=== PATIENT | female | born 1970 | race African-American/Black ===

== ENCOUNTER 2016-07-12 07:21 | Emergency (ER) | payer MEDICAID, OTHER ==
[~2016-07-12] VITALS: Ht 162.6 cm; Wt 107.0 kg
[~2016-07-12 07:21] MED LIST: ASCO500 PO; CYCL5TAB PO; FERR-72 PO; FOLI1 PO; LID5O TP; METF500T4 PO; MORP15TA9 PO; OMEP20 PO; PERCT PO; VITAD1000 PO
[2016-07-12] MEDS ORDERED: METH2.5T6 PO (07:31)
[2016-07-12] MEDS ORDERED: ONDANSETRON HCL 4 MG/2 ML VIAL IVP ONE (09:15)
[2016-07-12] MEDS ORDERED: SODIUM CHLORIDE 0.9% 1,000 ML IV ONE (09:15)
[2016-07-12 13:27] LABS: GLUCOSE,POINT OF CARE 102 MG/DL (70-110)
[2016-07-12 14:08] VITALS: BP 111/74
== END 2016-07-12 14:44 | disposition home or self-care (01) ==
LOC: EMS 07:22
DX: R51 Headache (principal); E11.9 Type 2 diabetes mellitus without complications; E78.00 Pure hypercholesterolemia, unspecified; K21.9 Gastro-esophageal reflux disease without esophagitis; G47.30 Sleep apnea, unspecified; R53.1 Weakness; Z88.0 Allergy status to penicillin; Z88.6 Allergy status to analgesic agent
CPT/HCPCS: 70450; 82962; 96361; 96374; 99284; J2405; J7030

== ENCOUNTER 2016-10-07 15:50 | Emergency (ER) | payer OTHER ==
[~2016-10-07] VITALS: Ht 162.6 cm; Wt 106.8 kg
[~2016-10-07 15:50] MED LIST changes: +METH2.5T6 PO
[2016-10-07 16:07] LABS: GLUCOSE,POINT OF CARE 125 MG/DL (70-110)
[2016-10-07 18:06] VITALS: BP 128/75
== END 2016-10-07 18:51 | disposition home or self-care (01) ==
LOC: EMS 15:54
DX: J06.9 Acute upper respiratory infection, unspecified (principal); A08.4 Viral intestinal infection, unspecified; E11.9 Type 2 diabetes mellitus without complications; E78.00 Pure hypercholesterolemia, unspecified; K21.9 Gastro-esophageal reflux disease without esophagitis; Z88.0 Allergy status to penicillin; Z88.6 Allergy status to analgesic agent
CPT/HCPCS: 82962; 99283

== ENCOUNTER 2016-11-16 10:34 | Emergency (ER) | payer OTHER ==
[2016-11-16] MEDS ORDERED: DICYCLOMINE HCL 20 MG TABLET PO ONE (11:30)
[2016-11-16] MEDS ORDERED: ONDANSETRON HCL 4 MG/2 ML VIAL IVP ONE (11:30)
[2016-11-16] MEDS ORDERED: SODIUM CHLORIDE 0.9% 1,000 ML IV ONE (11:30)
[2016-11-16 11:46] LABS: HEMOGLOBIN 13.7 g/dL (12.0-16.0); MEAN CORPUSCULAR HEMOGLOBIN 28.8 pg (26.0-34.0); MEAN CORPUSCULAR HGB CONC 32.6 G/dL (31.0-37.0); MEAN CORPUSCULAR VOLUME 88 fL (80-100); PLATELET COUNT (AUTO) 543 K/uL (150-450); RED BLOOD CELL COUNT(AUTO) 4.76 MIL/uL (4.00-5.20); RED CELL DISTRIBUTION WIDTH 16.3 % (11.5-14.5); WHITE BLOOD COUNT (AUTO) 17.3 K/uL (4.5-11.0)
[2016-11-16 12:05] LABS: ANION GAP 15 mmol/L (8-16); CALCIUM, TOTAL 10.1 mg/dL (8.8-10.5); CARBON DIOXIDE 25 mmol/L (22-29); CHLORIDE 104 mmol/L (98-107); CREATININE 1.11 mg/dL (0.60-1.30); GLOMERULAR FILTR. RATE CALC > 60 mL/min (>60); POTASSIUM 3.9 mmol/L (3.5-5.1); SODIUM SERUM 144 mmol/L (136-145); UREA NITROGEN, BLOOD 11 mg/dL (7-18)
[2016-11-16 12:06] LABS: BAND NEUTROPHILS % (MANUAL) 8 % (1-5); LYMPHOCYTES % (MANUAL) 18 % (22-44); RBC MORPHOLOGY COMMENT NORMAL RBC MORPH; TOTAL CELLS COUNTED 100
[2016-11-16 12:10] LABS: ALANINE AMINOTRANSFERASE 12 U/L (12-78); ALBUMIN 4.2 g/dL (3.4-5.0); ASPARTATE AMINOTRANSFERASE 8 U/L (15-37); BILIRUBIN,TOTAL 0.5 mg/dL (0.1-1.0); TOTAL PROTEIN, SERUM 10.1 g/dL (6.4-8.2)
[2016-11-16] MEDS ORDERED: ONDANSETRON HCL 4 MG/2 ML VIAL ONE (12:22)
[2016-11-16] MEDS ORDERED: MORPHINE SULFATE 4 MG/ML SYRINGE IVP ONE (12:45)
[2016-11-16] MEDS ORDERED: MORPHINE SULFATE 2 MG/ML SYRINGE ONE (12:53)
[2016-11-16] MEDS ORDERED: IOVERSOL 350 MG/ML 150 ML VIAL ONE (13:02)
[2016-11-16] MEDS ORDERED: SODIUM CHLORIDE 0.9% 100 ML ONE (13:02)
[2016-11-16] MEDS ORDERED: MORPHINE SULFATE 2 MG/ML SYRINGE IVP ONE (13:15)
[2016-11-16 15:33] VITALS: BP 115/65
== END 2016-11-16 16:00 | disposition home or self-care (01) ==
LOC: EMS 10:34
DX: R11.2 Nausea with vomiting, unspecified (principal); R19.7 Diarrhea, unspecified; D72.829 Elevated white blood cell count, unspecified; N39.0 Urinary tract infection, site not specified; K21.9 Gastro-esophageal reflux disease without esophagitis; E11.9 Type 2 diabetes mellitus without complications; E78.00 Pure hypercholesterolemia, unspecified; Z88.0 Allergy status to penicillin; Z88.6 Allergy status to analgesic agent
CPT/HCPCS: 36415; 74022; 74177; 80053; 82962; 83690; 84703; 85025; 96361; 96374; 96375; 99285; J2270; J2405; J7050; Q9967

== ENCOUNTER 2017-05-07 11:03 | Emergency (ER) | payer OTHER ==
[~2017-05-07] VITALS: Ht 162.6 cm; Wt 104.5 kg
[2017-05-07 11:18] LABS: GLUCOSE,POINT OF CARE 145 MG/DL (70-110)
[2017-05-07 12:01] LABS: INFLUENZA TYPE A NEGATIVE FOR TYPE A (NEGATIVE); INFLUENZA TYPE B NEGATIVE FOR TYPE B (NEGATIVE); RAPID GROUP A STREP NEGATIVE (NEGATIVE)
[2017-05-07] MEDS ORDERED: HYDROCODONE/ACETAMINOPHEN 5-325 MG TABLET PO ONE (12:30)
[2017-05-07] MEDS ORDERED: MORPHINE SULFATE 10 MG/ML SYRINGE IM ONE (12:30)
[2017-05-07] MEDS ORDERED: ONDANSETRON HCL 4 MG/2 ML VIAL IM ONE (12:30)
[2017-05-07 13:43] VITALS: BP 130/95
== END 2017-05-07 14:26 | disposition home or self-care (01) ==
LOC: EMS 11:08
DX: J02.9 Acute pharyngitis, unspecified (principal); R22.1 Localized swelling, mass and lump, neck; E11.9 Type 2 diabetes mellitus without complications; E78.00 Pure hypercholesterolemia, unspecified; K21.9 Gastro-esophageal reflux disease without esophagitis; Z88.0 Allergy status to penicillin; Z88.6 Allergy status to analgesic agent
CPT/HCPCS: 82962; 87430; 87804; 96372; 99284; J2270; J2405

== ENCOUNTER 2017-05-15 13:43 | Emergency (ER) | payer OTHER ==
[~2017-05-15] VITALS: Ht 162.6 cm; Wt 104.5 kg
[2017-05-15 14:03] LABS: GLUCOSE,POINT OF CARE 191 MG/DL (70-110)
[2017-05-15] MEDS ORDERED: ONDANSETRON HCL 4 MG/2 ML VIAL IVP ONE (14:30)
[2017-05-15] MEDS ORDERED: SODIUM CHLORIDE 0.9% 1,000 ML IV ONE (14:30)
[2017-05-15] MEDS ORDERED: MethylPREDNISolone SOD SUCC 125 MG/2 ML VIAL IVP ONE (14:30)
[2017-05-15] MEDS ORDERED: MORPHINE SULFATE 4 MG/ML SYRINGE IVP ONE (14:30)
[2017-05-15] MEDS ORDERED: IOVERSOL 350 MG/ML 150 ML VIAL ONE (14:39)
[2017-05-15 14:48] LABS: BASOPHILS % (AUTO) 0.9 % (0.0-2.0); EOSINOPHILS % (AUTO) 0.9 % (1.0-6.0); HEMATOCRIT 36.6 % (36-46); HEMOGLOBIN 12.3 g/dL (12.0-16.0); LYMPHOCYTES # (AUTO) 3.1 K/uL (1.0-4.8); LYMPHOCYTES % (AUTO) 23.7 % (22.0-44.0); MEAN CORPUSCULAR HGB CONC 33.5 G/dL (31.0-37.0); MEAN CORPUSCULAR VOLUME 87 fL (80-100); MONOCYTES # (AUTO) 0.4 K/uL (0.1-1.0); MONOCYTES % (AUTO) 3.4 % (2.0-9.0); NEUTROPHILS # (AUTO) 9.4 K/uL (1.8-7.7); NEUTROPHILS % (AUTO) 71.1 % (40.0-70.0); PLATELET COUNT (AUTO) 553 K/uL (150-450); RED BLOOD CELL COUNT(AUTO) 4.23 MIL/uL (4.00-5.20); RED CELL DISTRIBUTION WIDTH 15.4 % (11.5-14.5)
[2017-05-15 14:54] LABS: ANION GAP 7 mmol/L (8-16); CALCIUM, TOTAL 9.5 mg/dL (8.8-10.5); CARBON DIOXIDE 35 mmol/L (22-29); CHLORIDE 100 mmol/L (98-107); CREATININE 0.67 mg/dL (0.60-1.30); GLOMERULAR FILTR. RATE CALC > 60 mL/min (>60); GLUCOSE,RANDOM 190 mg/dL (70-110); SODIUM SERUM 142 mmol/L (136-145); UREA NITROGEN, BLOOD 7 mg/dL (7-18)
[2017-05-15 14:57] LABS: MONOTEST NEGATIVE (NEGATIVE)
[2017-05-15 15:00] LABS: ALANINE AMINOTRANSFERASE 23 U/L (12-78); ALBUMIN 3.9 g/dL (3.4-5.0); ALKALINE PHOSPHATASE 142 U/L (46-116); ASPARTATE AMINOTRANSFERASE 16 U/L (15-37); BILIRUBIN,TOTAL 0.4 mg/dL (0.1-1.0); TOTAL PROTEIN, SERUM 8.8 g/dL (6.4-8.2)
[2017-05-15 19:41] VITALS: BP 119/82
== END 2017-05-15 19:41 | disposition short-term general hospital (02) ==
LOC: EMS 13:45
DX: C11.9 Malignant neoplasm of nasopharynx, unspecified (principal); R22.1 Localized swelling, mass and lump, neck; J02.9 Acute pharyngitis, unspecified; E11.9 Type 2 diabetes mellitus without complications; K21.9 Gastro-esophageal reflux disease without esophagitis; E78.00 Pure hypercholesterolemia, unspecified; Z88.6 Allergy status to analgesic agent; Z88.0 Allergy status to penicillin
CPT/HCPCS: 36415; 70491; 80053; 81025; 82962; 85025; 86063; 86308; 96361; 96374; 96375; 99291; J2270; J2405; J2930; J7030; Q9967

== ENCOUNTER 2018-01-27 12:26 | Emergency (ER) | payer MEDICAID, OTHER ==
[~2018-01-27] VITALS: Ht 162.6 cm; Wt 101.4 kg
[~2018-01-27 12:26] MED LIST changes: +METF-960 PO; -METF500T4 PO
[2018-01-27 13:24] LABS: GLUCOSE,POINT OF CARE 145 MG/DL (70-110)
[2018-01-27] MEDS ORDERED: ONDA4 PO (13:31)
[2018-01-27] MEDS ORDERED: LORA0.5T2 PO (13:31)
[2018-01-27] MEDS ORDERED: POLY90PO MC (13:31)
[2018-01-27] MEDS ORDERED: OXYC5 PO (13:31)
[2018-01-27] MEDS ORDERED: PERCT10 PO (13:31)
[2018-01-27] MEDS ORDERED: MAG360OR93 PO (13:31)
[2018-01-27] MEDS ORDERED: LORA10TA7 PO (13:31)
[2018-01-27] MEDS ORDERED: SULF20OR7 PO (13:31)
[2018-01-27] MEDS ORDERED: SODIUM CHLORIDE 0.9% 1,000 ML IV ONE (13:45)
[2018-01-27 14:08] LABS: BASOPHILS % (AUTO) 1.9 % (0.0-2.0); HEMATOCRIT 30.3 % (36-46); HEMOGLOBIN 10.4 g/dL (12.0-16.0); LYMPHOCYTES # (AUTO) 4.1 K/uL (1.0-4.8); LYMPHOCYTES % (AUTO) 49.7 % (22.0-44.0); MEAN CORPUSCULAR HEMOGLOBIN 33.8 pg (26.0-34.0); MEAN CORPUSCULAR HGB CONC 34.5 G/dL (31.0-37.0); MEAN CORPUSCULAR VOLUME 98 fL (80-100); MONOCYTES # (AUTO) 0.7 K/uL (0.1-1.0); MONOCYTES % (AUTO) 8.2 % (2.0-9.0); NEUTROPHILS # (AUTO) 3.3 K/uL (1.8-7.7); NEUTROPHILS % (AUTO) 39.2 % (40.0-70.0); PLATELET COUNT (AUTO) 243 K/uL (150-450); RED BLOOD CELL COUNT(AUTO) 3.09 MIL/uL (4.00-5.20); RED CELL DISTRIBUTION WIDTH 15.6 % (11.5-14.5)
[2018-01-27 14:17] LABS: ANION GAP 10 mmol/L (8-16); CALCIUM, TOTAL 8.2 mg/dL (8.8-10.5); CARBON DIOXIDE 26 mmol/L (22-29); CHLORIDE 107 mmol/L (98-107); GLOMERULAR FILTR. RATE CALC > 60 mL/min (>60); GLUCOSE,RANDOM 119 mg/dL (70-110); SODIUM SERUM 143 mmol/L (136-145); UREA NITROGEN, BLOOD 4 mg/dL (7-18)
[2018-01-27 14:23] LABS: ALANINE AMINOTRANSFERASE 22 U/L (12-78); ALBUMIN 3.2 g/dL (3.4-5.0); ALKALINE PHOSPHATASE 84 U/L (46-116); ASPARTATE AMINOTRANSFERASE 18 U/L (15-37); BILIRUBIN,TOTAL 0.3 mg/dL (0.1-1.0); TOTAL PROTEIN, SERUM 6.2 g/dL (6.4-8.2)
[2018-01-27] MEDS ORDERED: HEPARIN SODIUM,PORCINE 1,000 UNITS/ML VIAL ONE (14:54)
[2018-01-27 15:12] VITALS: BP 162/77
== END 2018-01-27 15:23 | disposition home or self-care (01) ==
LOC: EMS 12:33
DX: G89.29 Other chronic pain (principal); R53.1 Weakness; E11.9 Type 2 diabetes mellitus without complications; K21.9 Gastro-esophageal reflux disease without esophagitis; M06.9 Rheumatoid arthritis, unspecified; E78.00 Pure hypercholesterolemia, unspecified; Z90.710 Acquired absence of both cervix and uterus; Z90.89 Acquired absence of other organs; Z98.890 Other specified postprocedural states; Z79.891 Long term (current) use of opiate analgesic; Z79.84 Long term (current) use of oral hypoglycemic drugs; Z79.899 Other long term (current) drug therapy; Z88.6 Allergy status to analgesic agent; Z88.0 Allergy status to penicillin; Z88.8 Allergy status to other drugs, medicaments and biological substances; Z85.79 Personal history of other malignant neoplasms of lymphoid, hematopoietic and related tissues
CPT/HCPCS: 36415; 80053; 82962; 85025; 99284; J1644; J7030

== ENCOUNTER 2018-11-01 06:32 | Emergency (ER) | payer MEDICAID ==
[~2018-11-01] VITALS: Ht 162.6 cm; Wt 106.8 kg
[~2018-11-01 06:32] MED LIST changes: -LID5O TP; +LORA0.5T2 PO; +LORA10TA7 PO; +MAG360OR93 PO; +ONDA4 PO; +OXYC5 PO; +PERCT10 PO; +POLY90PO MC; +SULF20OR7 PO
[2018-11-01] MEDS ORDERED: ACYC200C PO (06:47)
[2018-11-01 06:55] LABS: GLUCOSE,POINT OF CARE 213 MG/DL (70-110)
[2018-11-01] MEDS ORDERED: MORPHINE SULFATE 4 MG/ML SYRINGE IVP ONE (08:15)
[2018-11-01 08:54] LABS: BASOPHILS % (AUTO) 2.2 % (0.0-2.0); EOSINOPHILS % (AUTO) 1.1 % (1.0-6.0); HEMATOCRIT 33.8 % (36-46); HEMOGLOBIN 11.2 g/dL (12.0-16.0); LYMPHOCYTES # (AUTO) 3.9 K/uL (1.0-4.8); LYMPHOCYTES % (AUTO) 27.5 % (22.0-44.0); MEAN CORPUSCULAR HEMOGLOBIN 30.9 pg (26.0-34.0); MEAN CORPUSCULAR VOLUME 94 fL (80-100); MONOCYTES # (AUTO) 0.8 K/uL (0.1-1.0); NEUTROPHILS # (AUTO) 8.9 K/uL (1.8-7.7); NEUTROPHILS % (AUTO) 63.2 % (40.0-70.0); PLATELET COUNT (AUTO) 413 K/uL (150-450); RED BLOOD CELL COUNT(AUTO) 3.61 MIL/uL (4.00-5.20); RED CELL DISTRIBUTION WIDTH 14.4 % (11.5-14.5)
[2018-11-01 09:18] VITALS: BP 117/67
== END 2018-11-01 09:50 | disposition home or self-care (01) ==
LOC: EMS 06:33
DX: L02.31 Cutaneous abscess of buttock (principal); K21.9 Gastro-esophageal reflux disease without esophagitis; E78.00 Pure hypercholesterolemia, unspecified; E11.9 Type 2 diabetes mellitus without complications; Z88.0 Allergy status to penicillin; Z88.6 Allergy status to analgesic agent; Z88.8 Allergy status to other drugs, medicaments and biological substances; Z79.84 Long term (current) use of oral hypoglycemic drugs; Z79.899 Other long term (current) drug therapy
CPT/HCPCS: 36415; 82962; 85025; 96374; 99284; J2270

== ENCOUNTER 2019-01-08 14:04 | Emergency (ER) | payer MEDICAID, OTHER ==
[~2019-01-08] VITALS: Ht 162.6 cm; Wt 111.4 kg
[~2019-01-08 14:04] MED LIST changes: +ACYC200C PO; -ASCO500 PO; -FERR-72 PO; -FOLI1 PO; +LORA-999 PO; -LORA0.5T2 PO; -LORA10TA7 PO; -METH2.5T6 PO; -MORP15TA9 PO; -PERCT10 PO; -POLY90PO MC; -SULF20OR7 PO; -VITAD1000 PO
[2019-01-08 15:10] LABS: APPEARANCE,URINE CLOUDY (CLEAR); BILIRUBIN,URINE NEGATIVE (NEGATIVE); GLUCOSE, URINE (UA) 250 mg/dL (NEGATIVE); KETONES,URINE NEGATIVE (NEGATIVE); LEUKOCYTE ESTERASE ,URINE NEGATIVE (NEGATIVE); NITRATE,URINE NEGATIVE (NEGATIVE); OCCULT BLOOD,URINE NEGATIVE (NEGATIVE); PROTEIN,URINE NEGATIVE (NEGATIVE); UROBILINOGEN,URINE 0.2 mg/dL (<=1.0)
[2019-01-08 15:22] LABS: BACTERIA,URINE Few /HPF (None Seen); RBC,URINE None Seen /HPF (0-2); SQUAMOUS EPITHELIAL CELL,UR Few /LPF (None Seen); WBC,URINE 0-2 /HPF (0-5)
[2019-01-08 15:25] LABS: BASOPHILS % (AUTO) 2.3 % (0.0-2.0); EOSINOPHILS % (AUTO) 0.3 % (1.0-6.0); HEMATOCRIT 32.8 % (36-46); HEMOGLOBIN 10.9 g/dL (12.0-16.0); LYMPHOCYTES # (AUTO) 3.5 K/uL (1.0-4.8); LYMPHOCYTES % (AUTO) 35.5 % (22.0-44.0); MEAN CORPUSCULAR HEMOGLOBIN 30.5 pg (26.0-34.0); MEAN CORPUSCULAR HGB CONC 33.2 G/dL (31.0-37.0); MEAN CORPUSCULAR VOLUME 92 fL (80-100); MONOCYTES # (AUTO) 0.4 K/uL (0.1-1.0); NEUTROPHILS # (AUTO) 5.7 K/uL (1.8-7.7); NEUTROPHILS % (AUTO) 57.9 % (40.0-70.0); PLATELET COUNT (AUTO) 420 K/uL (150-450); RED BLOOD CELL COUNT(AUTO) 3.58 MIL/uL (4.00-5.20); RED CELL DISTRIBUTION WIDTH 13.9 % (11.5-14.5)
[2019-01-08 15:34] LABS: ANION GAP 9 mmol/L (8-16); CALCIUM, TOTAL 8.8 mg/dL (8.8-10.5); CARBON DIOXIDE 30 mmol/L (22-29); CHLORIDE 101 mmol/L (98-107); CREATININE 0.79 mg/dL (0.60-1.30); GLOMERULAR FILTR. RATE CALC > 60 mL/min (>60); GLUCOSE,RANDOM 240 mg/dL (70-110); POTASSIUM 3.6 mmol/L (3.5-5.1); SODIUM SERUM 140 mmol/L (136-145); UREA NITROGEN, BLOOD 6 mg/dL (7-18)
[2019-01-08 15:47] LABS: ALANINE AMINOTRANSFERASE 14 U/L (12-78); ALBUMIN 3.6 g/dL (3.4-5.0); ALKALINE PHOSPHATASE 156 U/L (46-116); ASPARTATE AMINOTRANSFERASE 12 U/L (15-37); BILIRUBIN,TOTAL 0.3 mg/dL (0.1-1.0); HCG,QUANTITATIVE 2 mIU/mL (0-6); LIPASE 44 U/L (73-393); TOTAL PROTEIN, SERUM 7.1 g/dL (6.4-8.2)
[2019-01-08] MEDS ORDERED: HEPARIN SODIUM,PORCINE 1,000 UNITS/ML VIAL ONE (17:46)
[2019-01-08] MEDS ORDERED: ONDANSETRON HCL 4 MG/2 ML VIAL IVP ONE (18:00)
[2019-01-08] MEDS ORDERED: MORPHINE SULFATE 4 MG/ML SYRINGE IVP ONE (18:00)
[2019-01-08 18:54] LABS: INFLUENZA TYPE A NEGATIVE FOR TYPE A (NEGATIVE); INFLUENZA TYPE B NEGATIVE FOR TYPE B (NEGATIVE)
[2019-01-08 19:45] VITALS: BP 116/82
== END 2019-01-08 20:13 | disposition home or self-care (01) ==
LOC: EMS 14:05
DX: R10.30 Lower abdominal pain, unspecified (principal); G89.29 Other chronic pain; M54.5 Low back pain; R11.2 Nausea with vomiting, unspecified; R19.7 Diarrhea, unspecified; E11.9 Type 2 diabetes mellitus without complications; E78.00 Pure hypercholesterolemia, unspecified; G47.30 Sleep apnea, unspecified; K21.9 Gastro-esophageal reflux disease without esophagitis; M19.90 Unspecified osteoarthritis, unspecified site; Z90.710 Acquired absence of both cervix and uterus; Z98.890 Other specified postprocedural states; Z85.72 Personal history of non-Hodgkin lymphomas; Z88.0 Allergy status to penicillin; Z88.6 Allergy status to analgesic agent; Z88.8 Allergy status to other drugs, medicaments and biological substances
CPT/HCPCS: 36415; 71045; 80053; 81001; 83690; 84702; 85025; 87804; 96374; 96375; 99285; J1644; J2270; J2405

== ENCOUNTER 2019-04-15 10:54 | Inpatient (IN) | payer OTHER ==
[~2019-04-15] VITALS: Ht 162.6 cm; Wt 100.0 kg
[~2019-04-15 10:54] MED LIST changes: -MAG360OR93 PO; +ONDA-104 PO; -ONDA4 PO
[2019-04-15] MEDS ORDERED: ONDANSETRON HCL 4 MG/2 ML VIAL IVP ONE (12:00)
[2019-04-15] MEDS ORDERED: BENZONATATE 100 MG CAPSULE PO ONE (12:00)
[2019-04-15] MEDS ORDERED: IPRATROPIUM BROMIDE 0.5 MG/2.5 ML NEB SOLUTION NEB ONE (12:00)
[2019-04-15] MEDS ORDERED: MethylPREDNISolone SOD SUCC 125 MG/2 ML VIAL IVP ONE (12:00)
[2019-04-15] MEDS ORDERED: ALBUTEROL SULFATE 2.5 MG/0.5 ML NEB SOLUTION NEB ONE (12:00)
[2019-04-15] MEDS ORDERED: SODIUM CHLORIDE 0.9% 1,000 ML IV ONE ×3 (13:00→14:15)
[2019-04-15 13:11] LABS: ANION GAP 9 mmol/L (8-16); CALCIUM, TOTAL 8.8 mg/dL (8.8-10.5); CARBON DIOXIDE 29 mmol/L (22-29); CHLORIDE 101 mmol/L (98-107); CREATININE 0.72 mg/dL (0.60-1.30); GLOMERULAR FILTR. RATE CALC > 60 mL/min (>60); GLUCOSE,RANDOM 329 mg/dL (70-110); POTASSIUM 3.9 mmol/L (3.5-5.1); SODIUM SERUM 139 mmol/L (136-145); UREA NITROGEN, BLOOD 3 mg/dL (7-18)
[2019-04-15 13:25] LABS: ALANINE AMINOTRANSFERASE 17 U/L (12-78); ALBUMIN 3.7 g/dL (3.4-5.0); ALKALINE PHOSPHATASE 156 U/L (46-116); ASPARTATE AMINOTRANSFERASE 18 U/L (15-37); BASOPHILS % (AUTO) 1.6 % (0.0-2.0); BILIRUBIN,TOTAL 0.4 mg/dL (0.1-1.0); EOSINOPHILS % (AUTO) 0.6 % (1.0-6.0); HCG,QUANTITATIVE < 1 mIU/mL (0-6); HEMATOCRIT 33.1 % (36-46); HEMOGLOBIN 10.8 g/dL (12.0-16.0); LYMPHOCYTES # (AUTO) 4.7 K/uL (1.0-4.8); MEAN CORPUSCULAR HEMOGLOBIN 29.7 pg (26.0-34.0); MEAN CORPUSCULAR HGB CONC 32.7 G/dL (31.0-37.0); MEAN CORPUSCULAR VOLUME 91 fL (80-100); MONOCYTES # (AUTO) 0.7 K/uL (0.1-1.0); MONOCYTES % (AUTO) 3.8 % (2.0-9.0); NEUTROPHILS # (AUTO) 12.3 K/uL (1.8-7.7); PLATELET COUNT (AUTO) 415 K/uL (150-450); RED BLOOD CELL COUNT(AUTO) 3.65 MIL/uL (4.00-5.20); RED CELL DISTRIBUTION WIDTH 13.8 % (11.5-14.5); TOTAL PROTEIN, SERUM 6.9 g/dL (6.4-8.2)
[2019-04-15] MEDS ORDERED: MORPHINE SULFATE 4 MG/ML SYRINGE IVP ONE (13:30)
[2019-04-15 13:32] LABS: B-TYPE NATRIURETIC PEPTIDE 179 pg/mL (0-100)
[2019-04-15 13:32] LABS: INFLUENZA TYPE A NEGATIVE FOR TYPE A (NEGATIVE); INFLUENZA TYPE B NEGATIVE FOR TYPE B (NEGATIVE)
[2019-04-15 13:38] LABS: LACTIC ACID 3.2 mmol/L (0.4-2.0)
[2019-04-15 13:53] LABS: APPEARANCE,URINE CLEAR (CLEAR); BILIRUBIN,URINE NEGATIVE (NEGATIVE); GLUCOSE, URINE (UA) >=1000 mg/dL (NEGATIVE); KETONES,URINE NEGATIVE (NEGATIVE); LEUKOCYTE ESTERASE ,URINE NEGATIVE (NEGATIVE); NITRATE,URINE NEGATIVE (NEGATIVE); OCCULT BLOOD,URINE NEGATIVE (NEGATIVE); PROTEIN,URINE NEGATIVE (NEGATIVE); UROBILINOGEN,URINE 0.2 mg/dL (<=1.0)
[2019-04-15] MEDS ORDERED: AZITHROMYCIN 500 MG/NS 250 ML IV ONE (14:00)
[2019-04-15] MEDS ORDERED: CefTRIAXone 1 GM/DEXTROSE 50 ML IV ONE (14:00)
[2019-04-15 14:05] LABS: BACTERIA,URINE None Seen /HPF (None Seen); RBC,URINE None Seen /HPF (0-2); SQUAMOUS EPITHELIAL CELL,UR Rare /LPF (None Seen); WBC,URINE None Seen /HPF (0-5)
[2019-04-15] MEDS ORDERED: DEXTROSE 50%-WATER 25 GM/50 ML SYRINGE IVP PRN (14:15)
[2019-04-15] MEDS ORDERED: ACETAMINOPHEN 325 MG TABLET PO PRN (14:15)
[2019-04-15] MEDS: HEPARIN SODIUM,PORCINE 5,000 UNITS/ML VIAL SQ SCH ×2 (16:59→23:39)
[2019-04-15] MEDS: OxyCODONE HCL/ACETAMINOPHEN 5-325 MG TABLET PO PRN ×2 (17:26→23:40)
[2019-04-15] MEDS: MetFORMIN HCL 500 MG TABLET PO SCH (17:27)
[2019-04-15 17:41] LABS: GLUCOSE,POINT OF CARE 370 MG/DL (70-110)
[2019-04-15 19:40] VITALS: BP 128/72
[2019-04-15] MEDS: DOCUSATE SODIUM 100 MG CAPSULE PO SCH (21:00)
[2019-04-15] MEDS: OxyCODONE HCL 10 MG IR TABLET PO SCH (21:01)
[2019-04-15] MEDS: ONDANSETRON HCL 4 MG/2 ML VIAL IVP PRN (21:01)
[2019-04-15 21:07] VITALS: BP 128/72
[2019-04-15] MEDS: INSULIN LISPRO 100 UNITS/ML SQ PRN (21:32)
[2019-04-15 23:50] VITALS: BP 124/70
[2019-04-16 04:30] VITALS: BP 119/71
[2019-04-16 05:08] LABS: GLUCOMETER DEV NAME(LOC) 6N.2; GLUCOSE,POINT OF CARE 393 MG/DL (70-110)
[2019-04-16] MEDS: ONDANSETRON HCL 4 MG/2 ML VIAL IVP PRN (05:40)
[2019-04-16] MEDS: OxyCODONE HCL/ACETAMINOPHEN 5-325 MG TABLET PO PRN ×4 (05:41→23:42)
[2019-04-16] MEDS: INSULIN LISPRO 100 UNITS/ML SQ PRN ×3 (06:11→21:21)
[2019-04-16 07:52] VITALS: BP 106/80
[2019-04-16 07:54] LABS: GLUCOMETER DEV NAME(LOC) 6N.1; GLUCOSE,POINT OF CARE 346 MG/DL (70-110)
[2019-04-16] MEDS: HEPARIN SODIUM,PORCINE 5,000 UNITS/ML VIAL SQ SCH ×3 (08:00→23:41)
[2019-04-16 08:26] LABS: BASOPHILS % (AUTO) 1.5 % (0.0-2.0); EOSINOPHILS % (AUTO) 0 % (1.0-6.0); HEMATOCRIT 29.7 % (36-46); LYMPHOCYTES # (AUTO) 2.2 K/uL (1.0-4.8); LYMPHOCYTES % (AUTO) 14.2 % (22.0-44.0); MEAN CORPUSCULAR HEMOGLOBIN 30.5 pg (26.0-34.0); MEAN CORPUSCULAR HGB CONC 33.6 G/dL (31.0-37.0); MEAN CORPUSCULAR VOLUME 91 fL (80-100); MONOCYTES # (AUTO) 0.7 K/uL (0.1-1.0); MONOCYTES % (AUTO) 4.5 % (2.0-9.0); NEUTROPHILS # (AUTO) 12.6 K/uL (1.8-7.7); NEUTROPHILS % (AUTO) 79.8 % (40.0-70.0); PLATELET COUNT (AUTO) 398 K/uL (150-450); RED BLOOD CELL COUNT(AUTO) 3.27 MIL/uL (4.00-5.20)
[2019-04-16 08:27] LABS: ANION GAP 8 mmol/L (8-16); CALCIUM, TOTAL 8.8 mg/dL (8.8-10.5); CARBON DIOXIDE 28 mmol/L (22-29); CHLORIDE 101 mmol/L (98-107); CREATININE 0.74 mg/dL (0.60-1.30); GLOMERULAR FILTR. RATE CALC > 60 mL/min (>60); GLUCOSE,RANDOM 328 mg/dL (70-110); POTASSIUM 3.8 mmol/L (3.5-5.1); SODIUM SERUM 137 mmol/L (136-145); UREA NITROGEN, BLOOD 8 mg/dL (7-18)
[2019-04-16] MEDS ORDERED: GlipiZIDE 5 MG TABLET PO ONE (09:00)
[2019-04-16] MEDS: FAMOTIDINE 20 MG TABLET PO SCH (09:46)
[2019-04-16] MEDS: MetFORMIN HCL 500 MG TABLET PO SCH ×2 (09:46→17:39)
[2019-04-16] MEDS: DOCUSATE SODIUM 100 MG CAPSULE PO SCH ×2 (09:46→21:13)
[2019-04-16] MEDS: OxyCODONE HCL 10 MG IR TABLET PO SCH ×2 (09:47→21:13)
[2019-04-16 11:26] VITALS: BP 129/87
[2019-04-16 15:03] VITALS: BP 122/78
[2019-04-16] MEDS: CefTRIAXone 1 GM/DEXTROSE 50 ML IV SCH (15:43)
[2019-04-16 16:34] LABS: GLUCOMETER DEV NAME(LOC) 6N.2; GLUCOSE,POINT OF CARE 317 MG/DL (70-110)
[2019-04-16] MEDS: AZITHROMYCIN 500 MG/NS 250 ML IV SCH (16:45)
[2019-04-16] MEDS ORDERED: BENZONATATE 100 MG CAPSULE PO PRN (17:30)
[2019-04-16] MEDS: GlipiZIDE 5 MG TABLET PO SCH (17:40)
[2019-04-16 19:45] VITALS: BP 120/67
[2019-04-16 21:39] LABS: GLUCOMETER DEV NAME(LOC) 6N.2; GLUCOSE,POINT OF CARE 274 MG/DL (70-110)
[2019-04-16 23:40] VITALS: BP 123/84
[2019-04-17 03:45] VITALS: BP 108/66
[2019-04-17] MEDS: GlipiZIDE 5 MG TABLET PO SCH (06:20)
[2019-04-17] MEDS: OxyCODONE HCL/ACETAMINOPHEN 5-325 MG TABLET PO PRN ×2 (06:20→11:57)
[2019-04-17] MEDS: INSULIN LISPRO 100 UNITS/ML SQ PRN ×2 (06:23→12:27)
[2019-04-17 07:01] LABS: GLUCOMETER DEV NAME(LOC) 6N.2; GLUCOSE,POINT OF CARE 223 MG/DL (70-110)
[2019-04-17 07:28] VITALS: BP 123/76
[2019-04-17] MEDS: HEPARIN SODIUM,PORCINE 5,000 UNITS/ML VIAL SQ SCH ×2 (08:00→16:00)
[2019-04-17] MEDS: DOCUSATE SODIUM 100 MG CAPSULE PO SCH (08:42)
[2019-04-17] MEDS: MetFORMIN HCL 500 MG TABLET PO SCH (08:42)
[2019-04-17] MEDS: FAMOTIDINE 20 MG TABLET PO SCH (08:42)
[2019-04-17] MEDS: OxyCODONE HCL 10 MG IR TABLET PO SCH (08:43)
[2019-04-17 11:11] VITALS: BP 128/71
[2019-04-17 13:22] LABS: GLUCOMETER DEV NAME(LOC) 6N.2; GLUCOSE,POINT OF CARE 209 MG/DL (70-110)
[2019-04-17] MEDS: CefTRIAXone 1 GM/DEXTROSE 50 ML IV SCH (14:02)
[2019-04-17] MEDS: AZITHROMYCIN 500 MG/NS 250 ML IV SCH (15:11)
[2019-04-17 15:23] VITALS: BP 135/82
== END 2019-04-17 19:00 | disposition home or self-care (01) | DRG 139 ==
LOC: EMS 10:54 → 6N 18:06
PROVIDERS: ADMIT Internal Medicine; ATTEND Internal Medicine
DX: J18.9 Pneumonia, unspecified organism (principal); C85.10 Unspecified B-cell lymphoma, unspecified site; R65.10 Systemic inflammatory response syndrome (SIRS) of non-infectious origin without acute organ dysfunction; E11.65 Type 2 diabetes mellitus with hyperglycemia; E66.01 Morbid (severe) obesity due to excess calories; G47.30 Sleep apnea, unspecified; M54.9 Dorsalgia, unspecified; K21.9 Gastro-esophageal reflux disease without esophagitis; M19.90 Unspecified osteoarthritis, unspecified site; G89.29 Other chronic pain; Z91.19 Patient's noncompliance with other medical treatment and regimen; E78.00 Pure hypercholesterolemia, unspecified; Z88.0 Allergy status to penicillin; Z88.8 Allergy status to other drugs, medicaments and biological substances; Z90.710 Acquired absence of both cervix and uterus; Z90.81 Acquired absence of spleen; Z83.3 Family history of diabetes mellitus; Z68.37 Body mass index [BMI] 37.0-37.9, adult
CPT/HCPCS: 83605; 87040; 87804; 93005; 94640; J0456; J0696; J1644; J2270; J2405; J2930; J7030

== ENCOUNTER → 2024-06-12 | Day surgery (SDC) | payer OTHER ==
[~2024-06-12] VITALS: Ht 162.6 cm; Wt 101.4 kg
[~2024-06-12] MED LIST changes: -ACYC200C PO; +ACYC200C24 PO; +ACYC400T20 PO; +BUDE10.27 IH; -CYCL5TAB PO; +FAMO40TA7 PO; +LIDOCAINE/PF 2% 5 ML VIAL ONE; -LORA-999 PO; +METF-1211 PO; +METF-446 PO; -METF-960 PO; -OMEP20 PO; +OMEP40CA21 PO; +OXYC-618 PO; -OXYC5 PO; -PERCT PO; +PROPOFOL 1% 20 ML VIAL IVP ONE; +SODIUM CHLORIDE 0.9% 1,000 ML ONE
[2024-06-12] MEDS: SODIUM CHLORIDE 0.9% 1,000 ML IV ONE (10:02)
== END | disposition still patient (30) ==
LOC: SURGERY 08:27
PROVIDERS: ATTEND Internal Medicine
DX: Z12.11 Encounter for screening for malignant neoplasm of colon (principal); K31.7 Polyp of stomach and duodenum; K29.70 Gastritis, unspecified, without bleeding; M06.9 Rheumatoid arthritis, unspecified; G47.30 Sleep apnea, unspecified; E11.9 Type 2 diabetes mellitus without complications; J44.9 Chronic obstructive pulmonary disease, unspecified; K21.9 Gastro-esophageal reflux disease without esophagitis; Z98.890 Other specified postprocedural states; Z90.81 Acquired absence of spleen; Z79.899 Other long term (current) drug therapy; Z88.8 Allergy status to other drugs, medicaments and biological substances
CPT/HCPCS: 43239; 45378; 88305; J2704; J3490; J7030